=== PATIENT | female | born 1965 | race Caucasian/White ===

== ENCOUNTER 2017-02-20 11:05 | Emergency (ER) ==
[2017-02-20 11:10] VITALS: BP 134/84; TEMP 98.1; BMI 51.7
[2017-02-20] MEDS ORDERED: TETANUS DIPHTHERIA TOXOIDS IM ONE (11:16)
[2017-02-20] MEDS ORDERED: LIDOCAINE 1 % AMP 5 ML (SUTURES) SUBCUT STA (11:16)
[2017-02-20] MEDS ORDERED: LIDOCAINE 1 % AMP 5 ML (SUTURES) ONE (11:18)
--- NOTE | 2017-02-20 11:29 | ED.PDOC ---
General ED Provider: Dr. ELIJAH MCGHEE-ER Chief Complaint: Hand Laceration Stated Complaint: i hurt my hand when i fell [place] of [place] truck [place] the [place] Time Seen by Physician: 11:10 Mode of Arrival: Walk-In Information Source: Patient Exam Limitations: No limitations Primary Care Provider: MIRTHA SIMS Nursing and Triage Documentation Reviewed and Agree: Yes Skin Complaint Exam - Laceration/Abrasion/Hand Complaint/Exam Location of Injury: Right, Hand Mechanism of Injury: Laceration Onset/Duration: 30 min Symptoms Are: Still present Initial Severity: Mild Current Severity: Mild Aggravating: Movement Alleviating: Compression Associated Signs and Symptoms: Denies: Fever, Chills, Erythema, Numbness, Tingling Differential Diagnoses: Avulsion, Laceration Review of Systems - Review Of Systems Constitutional: Reports: No symptoms Eyes: Reports: No symptoms Ears, Nose, Mouth, Throat: Reports: No symptoms Respiratory: Reports: No symptoms Cardiac: Reports: No symptoms GI: Reports: No symptoms : Reports: No symptoms Musculoskeletal: Reports: No symptoms Skin: Reports: No symptoms Neurological: Reports: Cognitive dysfunction Endocrine: Reports: No symptoms Hematologic/Lymphatic: Reports: No symptoms All Other Systems: Reviewed and Negative Past Medical History - Past Medical History Previously Healthy: Yes Endocrine: Reports: Unknown Cardiovascular: Reports: Unknown Respiratory: Reports: Unknown Hematological: Reports: Unknown Gastrointestinal: Reports: Unknown Genitourinary: Reports: Unknown Neuro/Psych: Reports: Unknown Musculoskeletal: Reports: Unknown Cancer: Reports: Unknown Last Menstrual Period: NONE - Surgical History General Surgical History: Reports: Unknown - Family History Family History: Reports: Unknown - Social History Smoking Status: Never smoker Hx Substance Use: No Alcohol Screening: None Lives: With family - Immunizations Tetanus Shot up to Date: No Physical Exam - Physical Exam Appearance: Well-appearing Eyes: JAMESON, EOMI, Conjunctiva clear ENT: Ears normal Neck: Supple Respiratory: Airway patent Cardiovascular: RRR, Pulses normal, No rub, No murmur GI/: Soft, Nontender, No masses, Bowel sounds normal, No Organomegaly Musculoskeletal: Normal strength Skin: Warm Neurological: Sensation intact Psychiatric: Affect appropriate, Mood appropriate Interpretation - Radiology Interpretation Radiology Interpretation By: ED Physician Radiology Results: Negative Procedures - Laceration/Wound Repair No standard instances Wound Description: Linear Wound Length (cm): 1.25 cm right hand Wound Explored: Clean Wound Irrigated: Yes Wound Prep: Abdullahi Anesthesia: Lidocaine Wound Repaired With: Sutures Suture Size and Type: 3 4.0 prolene Number of Sutures: 3 Layer Closure?: No Sterile Dressing Applied?: Yes Splint Applied?: No Sling Applied?: No Re-Evaluation - Re-Evaluation Time of Re-Evaluation: 11:30 Status: Unchanged Vital Signs Stable: Yes Pain Level: 1 Appearance: NAD Lungs: Clear Skin: Warm and Dry Neuro: Alert and Oriented X3 CV: RRR Additional Comments: good flexion and extension of the digit==neurovascular intact Critical Care Note - Critical Care Note Total Time (mins): 0 Course - Course Orders, Labs, Meds: Orders Category Date Time Status Lidocaine HCl/Pf [Lidocaine 1 % Amp 5 ml (Sutures)] MEDS 02/20/17 11:18 Discontinued 5 ml .ROUTE .STK-MED ONE Lidocaine HCl/Pf [Lidocaine 1 % Amp 5 ml (Sutures)] MEDS 02/20/17 11:16 Discontinued 5 ml SUBCUT ONCE STA Tetanus, Diphtheria Tox,Adult [Tetanus Diphtheria MEDS 02/20/17 11:16 Discontinued Toxoids] 0.5 ml IM .ONCE ONE HAND, RIGHT 3 VIEWS Stat RADS 02/20/17 11:16 Ordered Medications Discontinued Medications Generic Name Dose Route Start Last Admin Trade Name John PRN Reason Stop Dose Admin Lidocaine HCl 5 ml 02/20/17 11:16 Lidocaine 1 % Amp 5 Ml (Sutures) SUBCUT 02/20/17 11:17 ONCE STA Tetanus/Diphtheria Toxoids 0.5 ml 02/20/17 11:16 Tetanus Diphtheria Toxoids IM 02/20/17 11:17 .ONCE ONE Vital Signs: Temp Pulse Resp BP Pulse Ox 02/20/17 11:06 98.1 F 63 18 134/84 96 Departure - Departure Time of Disposition: 11:31 Disposition: HOME SELF-CARE Discharge Problem: Laceration of hand Instructions: Laceration (ED) Condition: Good Pt referred to PMD for follow-up: Yes Additional Instructions: routine suture care---sutures out in 7 days--tylenol or motrin for opain-- return if any signs of infection Allergies/Adverse Reactions: Allergies No Known Allergies Allergy (Verified 02/20/17 11:10) Home Medications: Ambulatory Orders Fluoxetine HCl [Prozac] 40 mg PO DAILY 02/20/17 Valsartan/Hydrochlorothiazide [Valsartan-Hctz 320-12.5 mg Tab] 1 each PO ONCE Disposition Discussed With: Patient, Family
--- NOTE | 2017-02-20 11:52 | DI ---
EXAM: Right hand three view. Three view. HISTORY: Pain. Trauma. COMPARISON: None. FINDINGS: AP, lateral and oblique views of the right hand. There are no acute or healing fractures . There are no lytic or blastic lesions. Soft tissues are normal. Bone mineralization is normal. There are no significant degenerative changes. IMPRESSION: Normal right hand.
== END 2017-02-20 11:44 | disposition home or self-care (01) ==
LOC: ED 11:05
DX: S61.411A Laceration without foreign body of right hand, initial encounter (principal); V89.9XXA Person injured in unspecified vehicle accident, initial encounter
CPT/HCPCS: 90471; 99283

== ENCOUNTER 2018-07-11 06:43 | Outpatient (CLI) ==
--- NOTE | 2018-07-13 09:06 | ECHO2D ---
Date of Exam: 07/11/2018 Ordering Physician: DR. MIRTHA SIMS Room #: OUTPATIENT Reason for Echo: CHEST PAIN Auscultation: Murmurs: M-Mode Normal Adult Results LV Dimensions Normal Adult Results AoV Opening excursions >1.6 >1.6 LVEDD-base- 3.5-5.8 3.7 Ao root dimensions 2.0-3.7 2.9 LVESD-base- 3.1-4.6 L. Atrium dimensions 1.9-3.8 3.7 Post. Wall thickness 0.8-1.1 1.1 IV septum (thickness) 0.7-1.2 1.0 Post. Wall excursion 0.72-1.3 NORMAL Septal motion NORMAL Systolic motion R. Ventricular cavity 1.5-2.0 NORMAL LVEF 60% 76% Paradoxical septal wall motion NORMAL 2-D : 2-D M Mode Echocardiogram was performed using apical four chamber and left parasternal long and short axis views. Mitral, tricuspid and aortic valves appear to be normal. Contractility of the left ventricle seems to be normal, so is the cavity size. Left atrial cavity size and aortic root appear to be normal. There is no pericardial effusion. There is no thrombus noted in the left ventricular or left aortic cavity. No mitral valve prolapse noted. M-MODE: MV: NORMAL AV: NORMAL TV: NORMAL PV: NORMAL CHAMBER SIZE: NORMAL WALL MOTION: NORMAL PERICARDIUM: NORMAL INTERPRETATION: 1. NORMAL 2 'D' ' M' MODE [facility]
== END 2018-07-11 06:44 | disposition home or self-care (01) ==
LOC: CAR 06:43
PROVIDERS: ATTEND Internal Medicine
DX: R07.9 Chest pain, unspecified (principal)

== ENCOUNTER 2018-07-12 06:44 | Outpatient (CLI) ==
--- NOTE | 2018-07-13 09:00 | STRESSECHO ---
Date of Test: 07/12/2018 Ordering Physician: DR. MIRTHA SIMS Occupation:WORKS AT [employer] Reason for Exam: CHEST PAIN Smoking History: QUIT 20 YEARS AGO Height: 60" Weight: 275 Current Medications: MOBIC, SYMBALTA, LOSARTAN Resting EKG: SINUS RHYTHM NO ACUTE CHANGES Target Heart Rate: 141/166 S-T SEGMENT STAGE MPH/GRADE HEART RATE BPM BLOOD PRESSURE MMHG RHYTHM +/- ELEVATION DEPRESSION SYMPTOMS AT REST 62 126/88 SR X NONE 1 1.7/10% 130 156/90 SR X NONE 2 2.5/12% 3 3.4/14% 4 4.2/16% 5 5.0/18% Immediately After 150 SR X SHORTNESS OF BREATH Minutes Post Exercise 5 70 140/70 SR X NONE Minutes Post Exercise DURATION OF EXERCISE: 4 MINUTES 03 SECONDS MAXIMUM HEART RATE REACHED: 150 REASON FOR TERMINATION: SHORTNESS OF BREATH INTERPRETATION: 97% OXYGEN SATURATION WITH EXERCISE ON ROOM AIR 1. TEST NEGATIVE FOR ISCHEMIC ST-T WAVE CHANGES 2. BLOOD PRESSURE RESPONSE NORMAL 3. FEW ISOLATED PREMATURE VENTRICULAR CONTRACTIONS NOTED WITH EXERCISE, POST EXERCISE PREMATURE ATRIAL CONTRACTIONS, SHORT 5-6 BEAT RUN OF SUPRAVENTRICULAR TACHYCARDIA IMMEDIATELY AFTER 4. NORMAL LEFT VENTRICULAR CONTRACTILITY RESTING AND POST EXERCISE MTDD
--- NOTE | 2018-07-13 09:03 | ECHOSTRESS ---
Date of Exam: 07/12/2018 Ordering Physician: DR. MIRTHA SIMS Reason for Echo: CHEST PAIN, STRESS TEST = NO ISCHEMIA M-Mode Normal Adult Results LV Dimensions Normal Adult Results AoV Opening excursions >1.6 LVEDD-base- 3.5-5.8 Ao root dimensions 2.0-3.7 LVESD-base- 3.1-4.6 L. Atrium dimensions 1.9-3.8 Post. Wall thickness 0.8-1.1 IV septum (thickness) 0.7-1.2 Post. Wall excursion 0.72-1.3 Septal motion Systolic motion R. Ventricular cavity 1.5-2.0 LVEF 60% Paradoxical septal wall motion 2-D: NORMAL LEFT VENTRICULAR CONTRACTILITY RESTING AND POST EXERCISE M-MODE: MV: AV: TV: PV: CHAMBER SIZE: WALL MOTION: NORMAL LEFT VENTRICULAR CONTRACTILITY RESTING AND POST EXERCISE PERICARDIUM: INTERPRETATION: 1. NORMAL LEFT VENTRICULAR CONTRACTILITY AND POST EXERCISE MTDD
== END 2018-07-12 06:45 | disposition home or self-care (01) ==
LOC: CAR 06:44
PROVIDERS: ATTEND Internal Medicine
DX: R07.9 Chest pain, unspecified (principal)